=== PATIENT | male | born 1945 | race Native Hawaiian/Other Pacific Islander ===

== ENCOUNTER 2017-03-19 15:49 | Outpatient (CLI) | payer OTHER | END 2017-03-19 19:08 | disposition home or self-care (01) | LOC: RESP 15:49 | DX: G60.8 Other hereditary and idiopathic neuropathies (principal) | CPT/HCPCS: 95886; 95911 ==

== ENCOUNTER 2018-02-14 12:00 | Emergency (ER) | payer OTHER ==
[~2018-02-14] VITALS: Ht 185.4 cm; Wt 93.0 kg
[2018-02-14 12:05] VITALS: BP 132/70; TEMP 98.8
== END 2018-02-14 12:25 | disposition home or self-care (01) ==
LOC: ED 12:00
DX: Z48.00 Encounter for change or removal of nonsurgical wound dressing (principal)
CPT/HCPCS: 99281

== ENCOUNTER 2018-02-25 15:42 | Emergency (ER) | payer OTHER ==
[~2018-02-25] VITALS: Ht 185.4 cm; Wt 93.0 kg
[2018-02-25 15:50] VITALS: BP 130/73; TEMP 97.2
== END 2018-02-25 16:20 | disposition home or self-care (01) ==
LOC: ED 15:42
DX: Z48.02 Encounter for removal of sutures (principal)

== ENCOUNTER 2020-11-07 09:17 | Outpatient (CLI) | payer OTHER | END 2020-11-07 19:53 | disposition home or self-care (01) | LOC: US 09:17 | PROVIDERS: ATTEND Urology | DX: R35.0 Frequency of micturition (principal) ==

== ENCOUNTER 2021-10-12 21:04 | Observation (INO) | payer OTHER ==
[~2021-10-12] VITALS: Ht 185.4 cm; Wt 95.5 kg
[2021-10-12 21:06] VITALS: BP 107/61; TEMP 98.3
[2021-10-12 21:30] VITALS: BP 97/59
[2021-10-12 21:51] LABS: PLATELET COUNT 234 K/uL (142-355)
[2021-10-12 22:00] VITALS: BP 115/46
[2021-10-12 22:01] LABS: POTASSIUM 3.8 mmol/L (3.6-5.2)
[2021-10-12] MEDS ORDERED: ATOR20TA2 (22:04)
[2021-10-12] MEDS ORDERED: PROSCAR5 MG (22:06)
[2021-10-12] MEDS ORDERED: TRAZODONE HYDRO50 MG PO (22:07)
[2021-10-12] MEDS ORDERED: TRINTELLIX5 MG PO (22:07)
[2021-10-12] MEDS ORDERED: ARIPIPRAZOLE10 MG PO (22:08)
[2021-10-12] MEDS ORDERED: GABA300C2 PO (22:09)
[2021-10-12] MEDS ORDERED: PANTOPRAZOLE 40MG TA PO (22:09)
[2021-10-12] MEDS ORDERED: TAMSULOSIN0.4 MG PO (22:10)
[2021-10-12 22:30] VITALS: BP 104/55
[2021-10-12 23:00] VITALS: BP 102/60
[2021-10-12 23:30] VITALS: BP 106/57
[2021-10-13 00:51] VITALS: BP 103/44; TEMP 98.4; Ht 185.4 cm; Wt 95.5 kg
[2021-10-13 04:00] VITALS: BP 99/51; TEMP 98.3
[2021-10-13 04:49] LABS: PLATELET COUNT 194 K/uL (142-355)
[2021-10-13 04:56] LABS: POTASSIUM 4.3 mmol/L (3.6-5.2)
[2021-10-13 08:00] VITALS: BP 126/54; TEMP 98.2
[2021-10-13 13:06] VITALS: BP 127/66; TEMP 98.2
[2021-10-13 16:00] VITALS: BP 100/41; TEMP 98.6
[2021-10-13 21:06] VITALS: BP 108/59; TEMP 98.4
[2021-10-14 01:06] VITALS: BP 108/49; TEMP 98
[2021-10-14 04:12] VITALS: BP 126/61; TEMP 98.5
[2021-10-14 05:15] LABS: POTASSIUM 4.1 mmol/L (3.6-5.2)
[2021-10-14 06:03] LABS: PLATELET COUNT 166 K/uL (142-355)
[2021-10-14 09:00] VITALS: BP 108/61; TEMP 97.9
[2021-10-14] MEDS ORDERED: LEVOFLOXACIN750 MG PO (10:29)
[2021-10-14] MEDS ORDERED: IPRAAER INH (10:31)
== END 2021-10-14 12:20 | disposition home or self-care (01) ==
LOC: ED 21:04 → MED/SURG 23:20
PROVIDERS: ADMIT Emergency Medicine Emergency Medical Services; ATTEND Internal Medicine
DX: J18.8 Other pneumonia, unspecified organism (principal); R11.2 Nausea with vomiting, unspecified; N17.8 Other acute kidney failure; E78.49 Other hyperlipidemia; N40.0 Benign prostatic hyperplasia without lower urinary tract symptoms
CPT/HCPCS: 36415; 80048; 80053; 81000; 83690; 85008; 85027; 87635; 94640; 94664; 94760; 96360; 96365; 96375; 99220; 99284; G0378; J0696; J1650; J1956; J2405; J3490; U0003

== ENCOUNTER 2022-12-06 18:26 | Emergency (ER) | payer OTHER ==
[~2022-12-06] VITALS: Ht 185.4 cm; Wt 95.3 kg
[~2022-12-06 18:26] MED LIST: ARIPIPRAZOLE10 MG PO; ATOR20TA2; GABA300C2 PO; IPRAAER INH; LEVOFLOXACIN750 MG PO; PANTOPRAZOLE 40MG TA PO; PROSCAR5 MG; TAMSULOSIN0.4 MG PO; TRAZODONE HYDRO50 MG PO; TRINTELLIX5 MG PO
[2022-12-06 18:28] VITALS: TEMP 98.1
[2022-12-06 19:03] LABS: PLATELET COUNT 185 K/uL (142-355)
[2022-12-06 19:09] LABS: POTASSIUM 3.5 mmol/L (3.6-5.2)
[2022-12-06 22:14] VITALS: BP 121/71
== END 2022-12-06 22:16 | disposition home or self-care (01) ==
LOC: ED 18:26
PROVIDERS: Internal Medicine
DX: I10 Essential (primary) hypertension (principal)
CPT/HCPCS: 80053; 84484; 85027; 93005; 99284

== ENCOUNTER 2023-03-28 19:17 | Emergency (ER) | payer OTHER ==
[~2023-03-28] VITALS: Ht 185.4 cm; Wt 90.7 kg
[2023-03-28 19:18] VITALS: TEMP 98.9
[2023-03-28 20:05] LABS: PLATELET COUNT 192 K/uL (142-355)
[2023-03-28 22:46] VITALS: BP 139/74
== END 2023-03-28 22:47 | disposition home or self-care (01) ==
LOC: ED 19:17
PROVIDERS: Emergency Medicine
DX: G20 Parkinson's disease (principal)
CPT/HCPCS: 80053; 84484; 85027; 93005; 99284

== ENCOUNTER 2023-07-06 16:42 | Emergency (ER) | payer OTHER ==
[~2023-07-06] VITALS: Ht 185.4 cm; Wt 90.7 kg
[2023-07-06 16:50] VITALS: TEMP 98.2
[2023-07-06 17:39] LABS: PLATELET COUNT 182 K/uL (142-355)
[2023-07-06 17:46] LABS: POTASSIUM 4.1 mmol/L (3.6-5.2)
[2023-07-06 18:41] VITALS: BP 118/53
== END 2023-07-06 18:41 | disposition home or self-care (01) ==
LOC: ED 16:42
PROVIDERS: Family Medicine
DX: I95.9 Hypotension, unspecified (principal); R00.1 Bradycardia, unspecified; K21.9 Gastro-esophageal reflux disease without esophagitis; F41.9 Anxiety disorder, unspecified
CPT/HCPCS: 80053; 84484; 85027; 93005; 99283